=== PATIENT | female | born 1950 | race Caucasian/White ===

== ENCOUNTER → 2020-03-07 | Outpatient (CLI) | payer MEDICARE, BC | LOC: M.MRI 16:30 | DX: M50.21 Other cervical disc displacement, high cervical region (principal); M51.24 Other intervertebral disc displacement, thoracic region; M47.812 Spondylosis without myelopathy or radiculopathy, cervical region; M50.20 Other cervical disc displacement, unspecified cervical region ==

== ENCOUNTER → 2020-03-14 | Outpatient (CLI) | payer MEDICARE, BC ==
[~2020-03-14] MED LIST: COQ-1030 MG PO; MELOXICAM15 MG PO; REFLUX MED PO; SIMVASTATIN40 MG PO; TIZANIDINE HCL4 M1 PO; vitamin d PO
== END ==
LOC: M.PC 03:39
PROVIDERS: ATTEND Physical Medicine & Rehabilitation
DX: M47.812 Spondylosis without myelopathy or radiculopathy, cervical region (principal); M50.31 Other cervical disc degeneration, high cervical region; M48.02 Spinal stenosis, cervical region

== ENCOUNTER → 2020-03-28 | Outpatient (CLI) | payer MEDICARE, BC | LOC: M.PC 04:18 | PROVIDERS: ATTEND Physical Medicine & Rehabilitation | DX: M50.30 Other cervical disc degeneration, unspecified cervical region (principal); M25.519 Pain in unspecified shoulder; M54.12 Radiculopathy, cervical region; M48.02 Spinal stenosis, cervical region ==